=== PATIENT | male | born 1990 | race Caucasian/White ===

== ENCOUNTER 2018-02-28 06:56 | Emergency (ER) | payer MEDICAID ==
[~2018-02-28] VITALS: Wt 149.3 kg
[2018-02-28 06:58] VITALS: BP 175/94; PULSE 95; RESP 20
[2018-02-28] MEDS ORDERED: AZIT250T PO (07:17)
[2018-02-28] MEDS ORDERED: D-ME473S2 PO (07:17)
--- NOTE | 2018-02-28 07:20 | ERD ---
ER Documentation Chief Complaint Chief Complaint cough, congestion, diarhea, patricia HPI 27-year-old male presents with productive cough for last 2 weeks. Is also had intermittent loose stools without blood or mucus. He had fevers initially during his illness but no current fevers. Denies chest pain, vomiting, abdomin al pain. Has mild frontal headache. ROS All systems reviewed and are negative except as per history of present illness. Medications Home Meds Active Scripts Dextromethorphan Hb-Promethazine Hcl* (Promethazine DM* Syrup) 473 Ml Syrup, 5 ML PO Q6 PRN for COUGH for 5 Days, ML Prov:LIZZ REAL MD 02/28/18 Azithromycin* (Zithromax*) 250 Mg Tablet, 250 MG PO .ZPACK DIRECTED, #6 TAB TAKE 500 MG (2 TABS) THE FIRST DAY THEN 250 MG (1 TAB) DAYS 2-5 Prov:LIZZ REAL MD 02/28/18 Allergies Allergies: Coded Allergies: No Known Allergy (Unverified , 02/05/14) PMhx/Soc Hx Alcohol Use: No Hx Substance Use: No Hx Tobacco Use: No FmHx Family History: No diabetes, No coronary disease, No other Physical Exam Vitals Vital Signs Date Temp Pulse Resp B/P (MAP) Pulse Ox O2 O2 Flow FiO2 Time Delivery Rate 02/28/18 97.5 95 20 175/94 97 06:58 (121) Physical Exam Const: No acute distress Head: Atraumatic Eyes: Normal Conjunctiva ENT: Normal External Ears, Nose and Mouth. Oropharynx normal. Neck: Full range of motion. No meningismus. Resp: Clear to auscultation bilaterally. Slight rhonchi without rales, wheezing or retractions. Cardio: Regular rate and rhythm, no murmurs Abd: Soft, non tender, non distended. Normal bowel sounds Skin: No petechiae or rashes Back: No midline or flank tenderness Ext: No cyanosis, or edema Neur: Awake and alert Psych: Normal Mood and Affect Procedures/MDM Presents with URI symptoms last 2 weeks. Treatment options were discussed with patient. He may have lingering viral illness given that some of the symptoms are improving. Given persistent productive cough we will administer a prescription of Zithromax, promethazine DM. Patient is encouraged to hold antibiotics for additional 3-5 days to allow viral illness to resolve. He may take for persistent productive mucus, fevers, new worsening symptoms otherwise return to the ER follow-up with primary care doctor. Is no evidence of hypoxemia, respiratory distress. The patient was stable with no new complaints during the ER course. Clinically, there is no current evidence to suggest meningitis, sepsis, acute abdomen, pneumonia, stroke, acute coronary syndrome, pulmonary embolism, aortic dissection or any other emergent condition appearing to require further evaluation or hospitalization. Patient counseled regarding my diagnostic impression and care plan. Prior to discharge all questions answered. Pt agrees with treatment plan and understands strict return precautions. Pt is instructed to follow up with primary care provider within 24- 48 hours. Precautionary instructions provided including instructions to return to the ER if not improving or for any worsening or changing symptoms or concerns. Departure Diagnosis: Primary Impression: Cough Condition: Stable Patient Instructions: Bronchitis, Antiobiotic Treatment (Adult), Bronchitis, No Antibiotic (Adult) Referrals: NO PRIMARY,CARE PHYSICIAN (PCP) Additional Instructions: Okay to hold antibiotics 3-4 days. May be lingering viral illness which will continue to resolve. LIZZ REAL MD Feb 28, 2018 07:20
== END 2018-02-28 07:27 | disposition home or self-care (01) ==
LOC: FTE 06:56
DX: R05 Cough (principal)
CPT/HCPCS: 99283